=== PATIENT | male | born 1995 | race Caucasian/White ===

== ENCOUNTER 2024-06-08 08:37 | Observation (INO) ==
[2024-06-08] MEDS: ASPIRIN 81 MG TAB.CHEW CHEWED ONE (09:02)
[2024-06-08] MEDS: KETOROLAC 30 MG/ML VIAL IV ONE (09:02)
[2024-06-08 09:37] LABS: Basophils # (Auto) 0.05 K/mcL (0.00-0.30); Basophils % (Auto) 0.4 % (0.0-2.0); Eosinophils # (Auto) 0.18 K/mcL (0.00-0.70); Eosinophils % (Auto) 1.3 % (0.0-7.0); Hematocrit 37.9 % (40.1-51.0); Hemoglobin 12.7 g/dL (13.7-17.5); Lymphocytes % (Auto) 31.2 % (15.5-49.0); Mean Cell Volume 86.7 fL (80.0-100.0); Mean Corpuscular HGB Conc 33.5 g/dL (31.0-36.0); Mean Platelet Volume 10.4 fL (8.8-12.5); Monocytes # (Auto) 1.01 K/mcL (0.10-0.90); Monocytes % (Auto) 7.3 % (1.0-12.0); Neutrophils % (Auto) 59.7 % (38.0-78.0); Platelet Count 246 K/mcL (140-440); RBC 4.37 M/mcL (4.63-6.08); Red Cell Distribution Width 13.2 % (11.5-14.5); WBC 13.8 K/mcL (4.5-11.0)
[2024-06-08 09:59] LABS: proBNP < 36.0 pg/mL (<125.0)
[2024-06-08 10:06] LABS: ALT/SGPT 13 U/L (<40); AST/SGOT 23 U/L (<40); Albumin 4.7 gm/dL (3.2-5.2); Albumin/Globulin Ratio 1.8 (1.0-2.3); Alkaline Phosphatase 65 U/L (39-117); Bilirubin,Total 0.4 mg/dL (0.1-1.0); Blood Urea Nitrogen 9 mg/dL (6-20); Carbon Dioxide 23 mmol/L (22-30); Chloride 101 mmol/L (96-108); Globulin 2.6 gm/dL (2.2-3.7); Glomerular Filtration Rate 119; Glucose 84 mg/dL (70-105); Potassium 3.3 mmol/L (3.3-5.1); Sodium 139 mmol/L (133-145)
[2024-06-08] MEDS: 0.9 % SODIUM CHLORIDE 1,000 ML IV ONE (11:24)
[2024-06-08] MEDS ORDERED: ACETAMINOPHEN 650 MG/65 ML BAG IV PRN (13:18)
[2024-06-10 07:19] VITALS: TEMP 98.4; O2SAT 98
== END 2024-06-10 11:05 | disposition home or self-care (01) ==
LOC: MEDSUR 08:37 → ED 08:37 → MEDSUR 14:14
PROVIDERS: ADMIT Surgery Surgical Critical Care; ATTEND Surgery Surgical Critical Care